=== PATIENT | female | born 1990 | race African-American/Black ===

== ENCOUNTER 2018-01-07 05:52 | Emergency (ER) | payer OTHER ==
[~2018-01-07] VITALS: Ht 165.1 cm; Wt 141.0 kg
[~2018-01-07 05:52] MED LIST: FERR-43 PO
[2018-01-07] MEDS ORDERED: TETRACAINE 0.5% OPHTH DROPS 4ML RIGHTEYE ONE (08:00)
[2018-01-07] MEDS ORDERED: FLUORESCEIN SODIUM 1MG/STRIP RIGHTEYE ONE (08:00)
[2018-01-07] MEDS ORDERED: LIDOCAINE HCL 1%/EPI 1:200,000 30 ML VIAL MC ONE (09:00)
[2018-01-07] MEDS ORDERED: IBUPROFEN 600MG TABLET PO ONE (09:00)
[2018-01-07 10:30] VITALS: BP 122/69
== END 2018-01-07 10:37 | disposition home or self-care (01) ==
LOC: ER 05:52
DX: S05.01XA Injury of conjunctiva and corneal abrasion without foreign body, right eye, initial encounter (principal); L02.415 Cutaneous abscess of right lower limb; X58.XXXA Exposure to other specified factors, initial encounter; Y93.9 Activity, unspecified; Y92.9 Unspecified place or not applicable
CPT/HCPCS: 10060; 99283; Z7610